=== PATIENT | male | born 1990 | race Caucasian/White ===

== ENCOUNTER 2022-02-14 18:27 | Emergency (ER) | payer OTHER ==
[~2022-02-14] VITALS: Ht 180.3 cm; Wt 79.4 kg
[2022-02-14] MEDS ORDERED: CYCLOBENZAPRINE10 MG PO (20:48)
== END 2022-02-14 21:17 | disposition home or self-care (01) ==
LOC: ED 18:27
DX: B34.9 Viral infection, unspecified (principal); Z88.0 Allergy status to penicillin; Z88.2 Allergy status to sulfonamides; Z20.822 Contact with and (suspected) exposure to COVID-19
CPT/HCPCS: 36415; 71045; 80048; 85025; 86140; 96374; 99284-25; C9803; J1885; U0003